=== PATIENT | female | born 1960 | race Caucasian/White ===

== ENCOUNTER 2021-04-14 18:29 | Emergency (ER) | payer OTHER ==
--- NOTE | 2021-04-14 20:13 | CRLCT ---
For Patients: As a result of the Century Cures Act, medical imaging exams and procedure reports are released immediately into your electronic medical record. You may view this report before your referring provider. If you have questions, please contact your health care provider. INDICATION: Episode of memory loss, difficulty finding words. TECHNIQUE: CT head without contrast. COMPARISON: None. FINDINGS: CSF spaces: Within normal limits for age. Brain parenchyma and extra-axial spaces: The flores-white differentiation is normal. No sign of mass, hemorrhage, or midline shift. No extra-axial fluid collection. Skull base and calvarium: The visualized paranasal sinuses and mastoid air cells demonstrate no acute or significant findings. The visualized orbits are grossly unremarkable. No skull fractures. IMPRESSION: Unremarkable noncontrast head CT. Please note that all CT scans at this facility use dose modulation, iterative reconstruction, and/or weight-based dosing when appropriate to reduce radiation dose to as low as reasonably achievable. Dictated by Keyon Shaw MD @ 04/14/2021 8:12:02 PM (Electronically Signed)
[2021-04-14] MEDS ORDERED: Sodium Chloride 0.9% 100 ML IV SCH (20:30)
[2021-04-14] MEDS ORDERED: Iopamidol 755 Mg/ML 100 ML Bottle IV SCH (20:30)
--- NOTE | 2021-04-14 21:39 | CRLCT ---
For Patients: As a result of the Cures Act, medical imaging exams and procedure reports are released immediately into your electronic medical record. You may view this report before your referring provider. If you have questions, please contact your health care provider. DATE: 04/14/2021 CLINICAL HISTORY: Patient with memory loss and word-finding difficulties. TECHNIQUE: Standard helical CT image acquisition of the neck up to the skull base after bolus intravenous contrast enhancement. Multiplanar reconstructed images performed on a separate workstation. COMPARISON: CT same day. FINDINGS: The origins of the great vessels from the aortic arch are patent. The origin of the right vertebral artery is patent. The origin of the left vertebral artery is patent. The common carotid arteries are patent. There is no stenosis at the origin of the right internal carotid artery. There is no stenosis at the origin of the left internal carotid artery. The rest of the cervical segments of the internal carotid arteries are patent up to the skull base. The left vertebral artery is dominant. The cervical segments of the vertebral arteries are patent up to the skull base. The visualized lung apices are unremarkable. The thyroid gland is unremarkable. The soft tissues of the neck are unremarkable. There are degenerative changes in the cervical spine. IMPRESSION: Normal CT angiogram of the neck. Please note that all CT scans at this facility use dose modulation, iterative reconstruction, and/or weight-based dosing when appropriate to reduce radiation dose to as low as reasonably achievable. Dictated by Miguel Burnette MD @ 04/14/2021 10:48:47 PM (Electronically Signed)
--- NOTE | 2021-04-14 21:39 | CRLCT ---
For Patients: As a result of the Century Cures Act, medical imaging exams and procedure reports are released immediately into your electronic medical record. You may view this report before your referring provider. If you have questions, please contact your health care provider. DATE: 04/14/2021 CLINICAL HISTORY: Patient with memory loss and word-finding difficulties. TECHNIQUE: Standard helical CT image acquisition through the intracranial circulation following intravenous administration of contrast material with bolus tracking. Multiplanar reconstructed images were performed and interpreted. COMPARISON: CT same day. FINDINGS: There is no cerebral aneurysm or large vessel occlusion. The right internal carotid artery is normal. The right middle cerebral artery and its branches are normal. The right anterior cerebral artery and its branches are normal. The left internal carotid artery is normal. The left middle cerebral artery and its branches are normal. The left anterior cerebral artery and its branches are normal. The anterior communicating artery is well visualized and appears normal. The right vertebral artery and PICA are normal. The left vertebral artery and PICA are normal. The left vertebral artery is dominant. The basilar artery is patent and appears normal. The right posterior cerebral artery is normal. The left posterior cerebral artery is normal. IMPRESSION: Normal CT angiogram of the head without intracranial aneurysm or other neurovascular abnormality. Please note that all CT scans at this facility use dose modulation, iterative reconstruction, and/or weight-based dosing when appropriate to reduce radiation dose to as low as reasonably achievable. Dictated by Miguel Burnette MD @ 04/14/2021 10:50:34 PM (Electronically Signed)
--- NOTE | 2021-04-14 22:10 | EDM.PDOC ---
ED HPI GENERAL MEDICAL PROBLEM - General Chief Complaint: Neuro Symptoms/Deficits Stated Complaint: MEDICAL VIA [facility] Time Seen by Provider: 04/14/21 18:40 Source of Information: Reports: Patient, Family History Limitations: Reports: No Limitations - History of Present Illness INITIAL COMMENTS - FREE TEXT/NARRATIVE: at 4 thirty this pm the pt had an episode where she did not feel right. She was having difficulty remembering things, difficulty geting words out. She felt confused. This lasted for about 45 minutes. By the tie she arrived hre she was fairly clear. She does not have a headache. She has no visual symptoms. Pt has not had similar episodes. She did note that she had some pauses in her pulse. Onset: Today, Sudden Duration: Other ( episode lasted for 45 minutes. ) Location: Reports: Head, Other (pt was having difficulty remembering things and ) - Related Data Allergies Allergy/AdvReac Type Severity Reaction Status Date / Time No Known Allergies Allergy Verified 04/14/21 18:44 Home Meds: Home Meds Cetirizine [ZyrTEC] 10 mg PO DAILY 04/14/21 [History] Meloxicam 15 mg PO DAILY 04/14/21 [History] Montelukast [Singulair] 10 mg PO DAILY 04/14/21 [History] Omeprazole 40 mg PO DAILY 04/14/21 [History] Past Medical History HEENT History: Reports: Impaired Vision Cardiovascular History: Reports: Other (See Below) Other Cardiovascular History: runs low bp Respiratory History: Reports: Asthma [employer] History: Reports: Musculoskeletal History: Reports: Back Pain, Chronic Hematologic History: Reports: B12 Deficiency - Infectious Disease History Infectious Disease History: Reports: Chicken Pox - Past Surgical History GI Surgical History: Reports: Cholecystectomy Social & Family History - Tobacco Use Tobacco Use Status *Q: Never Tobacco User - Caffeine Use Caffeine Use: Reports: Coffee - Alcohol Use Days Per Week of Alcohol Use: 5 Number of Drinks Per Day: 2 Total Drinks Per Week: 10 - Recreational Drug Use Recreational Drug Use: No ED ROS GENERAL - Review of Systems Review Of Systems: See Below Reason Not Obtained: pt arrived after having an episode of difficulty speaking and dif Constitutional: Reports: No Symptoms HEENT: Reports: No Symptoms Respiratory: Reports: No Symptoms Cardiovascular: Reports: Other (pt did feel like her heart rhythm had pauses in it. ) Endocrine: Reports: No Symptoms GI/Abdominal: Reports: No Symptoms : Reports: No Symptoms Musculoskeletal: Reports: No Symptoms Skin: Reports: No Symptoms ED EXAM, NEURO - Physical Exam Exam: See Below Text/Narrative:: pt had an episode about four thirty this pm when she did not feel right. She was having difficulty remembering things, She has not done this in the past. Exam Limited By: No Limitations General Appearance: Alert, Anxious, Other (pt states the problem has cleared. pupils are equal and reactive. ) Ears: Normal TMs Nose: Normal Inspection Throat/Mouth: Normal Inspection Head Exam: Atraumatic Neck: Other ( no bruits noted) Respiratory/Chest: No Respiratory Distress Cardiovascular: Other (pt is having frequent ventricular ectopics. ) GI/Abdominal: Soft, Non-Tender (Female) Exam: Deferred Rectal (Female) Exam: Deferred Neurological: Alert, Oriented x 3 Back Exam: Normal Inspection Extremities: Normal Inspection Course - Vital Signs Last Recorded V/S: Last Vital Signs Temp 36.2 C 04/14/21 18:41 Pulse 75 04/14/21 20:50 Resp 22 H 04/14/21 20:50 BP 145/96 H 04/14/21 20:50 Pulse Ox 95 04/14/21 20:50 - Orders/Labs/Meds Orders: Active Orders 24 hr Category Date Time Status CULTURE URINE [RM] Stat Lab 04/14/21 20:00 Received TROPONIN I HIGH SENSITIVITY [CHEM] Stat Lab 04/14/21 19:00 Received Iopamidol [Isovue-370 (76%)] Med 04/14/21 20:30 Active 100 ml IV . DIRECTED Sodium Chloride 0.9% [Normal Saline] 100 ml Med 04/14/21 20:30 Active IV ASDIRECTED EKG 12 Lead [EK] Routine Ther 04/14/21 18:53 Ordered Medication Orders Sodium Chloride (Normal Saline) 100 mls @ 3 mls/sec IV ASDIRECTED [facility] Last Admin: 04/14/21 21:07 Dose: 3 mls/sec Documented by: [employer] Iopamidol (Iopamidol 755 Mg/Ml 100 Ml Bottle) 100 ml IV . DIRECTED [facility] Last Admin: 04/14/21 21:07 Dose: 100 ml Documented by: [email or web address] Labs: Laboratory Tests 01/04/22 01/04/22 01/04/22 Range/Units 19:03 19:03 19:33 WBC 7.3 (4.5-11.0) K/uL RBC 4.52 (3.30-5.50) M/uL Hgb 13.7 (12.0-15.0) g/dL Hct 41.1 (36.0-48.0) % MCV 91 (80-98) fL MCH 30 (27-31) pg MCHC 33 (32-36) % Plt Count 313 (150-400) K/uL Neut % (Auto) 62.2 (36-66) % Lymph % (Auto) 28.9 (24-44) % [place] % (Auto) 6.7 H (2-6) % Eos % (Auto) 1.6 L (2-4) % Baso % (Auto) 0.5 (0-1) % Sodium 139 L (140-148) mmol/L Potassium 4.0 (3.6-5.2) mmol/L Chloride 103 (100-108) mmol/L Carbon Dioxide 26 (21-32) mmol/L Anion Gap 14.0 (5.0-14.0) mmol/L BUN 17 (7-18) mg/dL Creatinine 0.8 (0.6-1.0) mg/dL Est Cr Clr Drug Dosing 65.38 mL/min Estimated GFR (MDRD) > 60 (>60) Glucose 133 H (74-106) mg/dL Calcium 9.0 (8.5-10.1) mg/dL Total Bilirubin 0.3 (0.2-1.0) mg/dL AST 23 (15-37) U/L ALT 41 (12-78) U/L Alkaline Phosphatase 65 (46-116) U/L Total Protein 7.4 (6.4-8.2) g/dL Albumin 3.8 (3.4-5.0) g/dL Globulin 3.6 H (2.3-3.5) g/dL Albumin/Globulin Ratio 1.1 L (1.2-2.2) Urine Color Yellow (YELLOW) Urine Appearance Clear (CLEAR) Urine pH 7.0 (5.0-8.0) Ur Specific [place] 1.020 (1.008-1.030) Urine Protein Negative (NEGATIVE) mg/dL Urine Glucose (UA) Negative (NEGATIVE) mg/dL Urine Ketones Negative (NEGATIVE) mg/dL Urine Occult Blood Trace-lysed H (NEGATIVE) Urine Nitrite Negative (NEGATIVE) Urine Bilirubin Negative (NEGATIVE) Urine Urobilinogen 0.2 (0.2-1.0) EU/dL Ur Leukocyte Esterase Small H (NEGATIVE) Urine RBC 0-5 (0-5) Urine WBC 5-10 H (0-5) Ur Epithelial Cells Moderate Amorphous Sediment Not seen Urine Bacteria Moderate Urine Mucus Not seen Meds: Medications Generic Name Dose Route Start Last Admin Trade Name Prince PRN Reason Stop Dose Admin Sodium Chloride 100 mls @ 3 mls/sec 04/14/21 20:30 04/14/21 21:07 Normal Saline IV 3 mls/sec ASDIRECTED IAN Administration Iopamidol 100 ml 04/14/21 20:30 04/14/21 21:07 Iopamidol 755 Mg/Ml 100 Ml Bottle IV 100 ml . DIRECTED IAN Administration - Re-Assessments/Exams Free Text/Narrative Re-Assessment/Exam: 04/14/21 22:17 pt seemed clear and did not have any lateralizing neuro igns. Her cat scan of the head was neg. A cta of the head and neck was obtained which was clear. She was having frequent vent ectopics. Neurlogy was consulted and it was felt this was either a tia or global amnesia. He reccommended that the pt put put on asa, have a echocardigram, and that she be placed on a holter monitor. Departure - Departure Time of Disposition: 22:10 Disposition: Home, Self-Care 01 Condition: Fair Clinical Impression: TIA (transient ischemic attack), Transient global amnesia - Discharge Information Referrals: Ameena Gomez MD [Primary Care Provider] - Forms: ED Department Discharge Care Plan Goals: baby asa daily, rtc if further symptoms, 48 hour holter monitor, echocrdigram Sepsis Event Note (ED) - Evaluation Sepsis Screening Result: No Definite Risk - Focused Exam Vital Signs: Vital Signs Temp Pulse Resp BP Pulse Ox 04/14/21 20:50 75 22 H 145/96 H 95 04/14/21 20:16 69 26 H 127/75 93 L 04/14/21 18:41 36.2 C 78 14 141/90 H 96 04/14/21 18:39 36.2 C 78 14 141/90 H 96 - My Orders Last 24 Hours: My Active Orders 04/14/21 18:53 EKG 12 Lead [EK] Routine 04/14/21 19:00 TROPONIN I HIGH SENSITIVITY [CHEM] Stat 04/14/21 20:00 CULTURE URINE [RM] Stat 04/14/21 20:30 Iopamidol [Isovue-370 (76%)] 100 ml IV . DIRECTED Sodium Chloride 0.9% [Normal Saline] 100 ml IV ASDIRECTED - Assessment/Plan Last 24 Hours: My Active Orders 04/14/21 18:53 EKG 12 Lead [EK] Routine 04/14/21 19:00 TROPONIN I HIGH SENSITIVITY [CHEM] Stat 04/14/21 20:00 CULTURE URINE [RM] Stat 04/14/21 20:30 Iopamidol [Isovue-370 (76%)] 100 ml IV . DIRECTED Sodium Chloride 0.9% [Normal Saline] 100 ml IV ASDIRECTED
== END 2021-04-14 22:31 | disposition home or self-care (01) ==
LOC: JP.ED 18:29
DX: G45.9 Transient cerebral ischemic attack, unspecified (principal); Z79.899 Other long term (current) drug therapy
CPT/HCPCS: 36415; 70450; 70496; 70498; 80053; 81001; 84484; 85025; 87086; 93005; 93010; 99284; Q9967

== ENCOUNTER 2021-05-19 19:01 | Emergency (ER) | payer OTHER | END 2021-05-19 20:27 | disposition home or self-care (01) | LOC: JP.ED 19:01 | DX: R29.818 Other symptoms and signs involving the nervous system (principal); J45.909 Unspecified asthma, uncomplicated; K21.9 Gastro-esophageal reflux disease without esophagitis; Z79.899 Other long term (current) drug therapy | CPT/HCPCS: 99283 ==